=== PATIENT | female | born 1965 | race Caucasian/White ===

== ENCOUNTER → 2016-12-25 17:02 | Outpatient (CLI) | payer BC | END | disposition home or self-care (01) | LOC: D.MAMMO 16:15 | DX: Z12.31 Encounter for screening mammogram for malignant neoplasm of breast (principal) ==

== ENCOUNTER 2019-03-02 08:00 | Outpatient (CLI) | payer BC | END 2019-03-02 08:30 | disposition home or self-care (01) | LOC: D.MAMMO 08:00 | PROVIDERS: ATTEND Clinical Nurse Specialist Family Health | DX: Z12.31 Encounter for screening mammogram for malignant neoplasm of breast (principal) ==

== ENCOUNTER 2021-02-08 10:22 | Day surgery (SDC) | payer BC ==
[~2021-02-08] VITALS: Ht 149.9 cm; Wt 85.7 kg
[~2021-02-08 10:22] MED LIST: EFFEXOR XR37.5 MG PO; LEVOTHYROXINE75 MCG PO; LISINOPRIL10 MG PO; PROMETRIUM200 MG PO; VALIUM5 MG PO; ZYRTEC10 MG PO
[2021-02-08 10:49] LABS: BASOPHILS 0.8 % (0-2); EOSINOPHILS 3.4 % (0-7); HEMATOCRIT 34.6 % (36.0-48.0); HEMOGLOBIN 11.1 g/dL (12-16); LYMPHOCYTES 24.5 % (15-50); MCH 27.3 pg (26.0-34.0); MCHC 32.2 g/dL (31.0-37.0); MCV 84.9 fL (80.0-100.0); MEAN PLATELET VOLUME 6.7 fL (7.4-10.4); MONOCYTES 6.2 % (2-11); NEUTROPHILS 65.1 % (40-80); PLATELET COUNT 431 10x3/uL (130-400); RBC 4.07 10x6/uL (4.00-5.40); RDW 23.1 % (11.5-14.5); WBC 5.8 10x3/uL (4.8-10.8)
[2021-02-08 10:58] LABS: CALC OSMOLALITY 283 mosm/kg (275-300); CALCIUM 8.9 mg/dL (8.5-10.1); CARBON DIOXIDE 25.9 mmol/L (21.0-32.0); CHLORIDE - SERUM 107 mmol/L (98-107); CREATININE - SERUM 0.8 mg/dL (0.6-1.3); GLUCOSE 92 mg/dL (74-106); SODIUM 142 mmol/L (136-145); UREA NITROGEN 14 mg/dL (7-18); eGFR NON AFRICAN AMERICAN 79 mL/min (90-120)
[2021-02-08 11:59] VITALS: BP 126/61; Ht 149.9 cm; Wt 85.7 kg
--- NOTE | 2021-02-08 14:46 | NUR ---
PT SUFFERS FROM EXTREME ANXIETY PER ANESTHESIA
--- NOTE | 2021-02-08 16:17 | NUR ---
1520 - PATIENT REMAINS ANXIOUS ABOUT SENSATION OF SHORTNESS OF BREATH. DISCUSSED HER SATURATION LEVELS AND THE EFFECTS THAT BLOCK MAY BE HAVING ON HER DURING RESPIRATIONS. BOTH SHE AND HER MOTHER VOICED UNDERSTANDING.
--- NOTE | 2021-02-08 17:24 | NUR ---
1630 UP TO SIDE OF BED TO DRESS. SLING ADJUSTED AND REMAINS IN PLACE TO LEFT ARM. DISCHARGED AT 1700 VIA WHEELCHAIR TO PRIVATE CAR. SPOUSE IN ATTENDANCE.
--- NOTE | 2021-02-09 08:14 | OP ---
PATIENT NAME: ROMINA LUGO MEDICAL RECORD: [id number] :65 LOCATION:[facility] ADMISSION DATE: SURGEON: HENOK WARREN DO DATE OF OPERATION: 02/08/2021 PROCEDURE PERFORMED: Left shoulder arthroscopy with rotator cuff repair, distal clavicle excision, acromioplasty and subacromial decompression, labral debridement and biceps tenodesis. PREOPERATIVE DIAGNOSES: Left shoulder full thickness rotator cuff tear of the supraspinatus, SLAP tear, subacromial impingement, and acromioclavicular joint arthritis. POSTOPERATIVE DIAGNOSES: Left shoulder full thickness rotator cuff tear of the supraspinatus, SLAP tear, subacromial impingement, and acromioclavicular joint arthritis. INDICATIONS: Ms. Lugo is a 55-year-old female who has had left shoulder pain for quite some time and had an MRI showing the above findings. I informed her of the risks of this including infection, bleeding, retear, failure of implants, continued pain, frozen shoulder syndrome, postop infection, damage to nerves and vessels in the area, continued pain, need for further surgery, and retear, and she signed the consent. SURGEON: Henok Warren DO DESCRIPTION OF PROCEDURE: The patient received a block by anesthesia in preoperative area and taken to the operative suite, moved to the right lateral decubitus position with the left shoulder up. She was sedated and LMA was placed. She was given 900 mg of clindamycin. Left shoulder was prepped and draped in sterile fashion. Timeout was performed, everyone was in agreement of the correct side, site, patient and procedure. I then began by inserting an 18-gauge spinal needle through the posterior portal site and inflating the shoulder with 60 cc of normal saline. I then established the posterior portal with an 11-blade scalpel and trocar was brought into the joint. I then established an anterior portal, 18-gauge spinal needle and 11-blade scalpel. I then brought in the trocar and then a burner, saw the large SLAP tear and severely torn labrum. I then did a labral debridement and long head tendon bicep tenotomy. I checked the subscapularis tendon, it was in good repair as well as infraspinatus; however, the supraspinatus did have a full thickness tear at the insertion on the humerus. I then inspected the rest of the joint. She did have some chondromalacia, nothing in the inferior joint. I then went to the subacromial space, established a lateral portal with an 18-gauge spinal needle and 11-blade scalpel. Trocars brought in. I then did a subacromial decompression with distal clavicle excision through the anterior portal and through the lateral portal an acromioplasty. I then saw the bursal side of the tear, marked with an 18-gauge spinal needle, reprepped the shoulder, and opened up the lateral portal with a 15 blade scalpel. Made careful dissection down to the tear. Removed the bursa, put a medial row anchor in through the supraspinatus with 4 suture tapes and brought over to the nice repair with the lateral row anchor. I then put the large Regeneten implant on top of the tear and stapled it into place. I then went to the anterior humerus, made a small incision and made a careful dissection down to the long head of the bicep tendon and removed it through the wound and then put a unicortical hole in the humerus and used a 2.9 JuggerLoc bicep tenodesis anchor and looped the tendon through OPERATIVE REPORT [id number] ROMINA LUGO MADI the loop, cinched it down, and then cut the loop and put the excess suture on a free needle, and went back through the tendon twice and tied it down to the humerus, cut the excess tendon and suture that time. I then irrigated. Hamilton Bobby, certified surgical instrument mechanic, then closed the open wounds with 2-0 Vicryl in inverted interrupted fashion, 4-0 Monocryl running on the skin and 4-0 Monocryl in inverted interrupted fashion. The portal site was dressed with Dermabond, Telfa and Tegaderm. She was awakened, put in a sling and taken to recovery in stable condition. ESTIMATED BLOOD LOSS: Minimal. COMPLICATIONS: None. TRANSINT:[id number] Voice Confirmation ID: [id number] DOCUMENT ID: [id number] HENOK WARREN DO at 0814 CC: [id number] DICTATION DATE: 02/08/211844 CREATIVE ART DIRECTOR: 02/09/21 005 [facility] 02/08/21 [facility] [address] [place] [address]
== END 2021-02-08 17:00 | disposition home or self-care (01) ==
LOC: D.OPS 10:22
PROVIDERS: Anesthesiology; ATTEND Orthopaedic Surgery
DX: M75.122 Complete rotator cuff tear or rupture of left shoulder, not specified as traumatic (principal); S43.432A Superior glenoid labrum lesion of left shoulder, initial encounter; M75.42 Impingement syndrome of left shoulder; M13.812 Other specified arthritis, left shoulder; M25.512 Pain in left shoulder